=== PATIENT | male | born 2000 | race Hispanic/Latino ===

== ENCOUNTER 2025-06-28 15:52 | Emergency (ER) | payer SELFPAY ==
[~2025-06-28] VITALS: Ht 172.7 cm; Wt 74.8 kg
--- NOTE | 2025-06-28 16:09 | ERN ---
ED Note History of Present Illness Stated Complaint: CHEST PAIN Chief Complaint: Chest Pain Time Seen by MD: 15:56 Dictation: PATIENT IS A 25-YEAR-OLD MALE COMING IN TODAY WITH COMPLAINTS OF SUBSTERNAL CHEST PAIN THAT IS WORSE WITH COUGH OR INSPIRATION THAT RADIATES TO HIS UPPER BACK. HE STATES THE ONSET WAS THIS MORNING WHILE HE WAS COUGHING. HE DENIES ANY HISTORY OF CAD HYPERTENSION DIABETES. HE STATES HE HAS USED DRUGS INCLUDING COCAINE IN THE PAST, STATES HE LAST USED COCAINE ONE MONTH AGO ON-CALL. FOR PRIMARY CARE DOCTOR Allergies: Coded Allergies: No Known Allergies (Unverified Allergy, Unknown, 06/28/25) Home Meds Active Scripts Prednisone (Prednisone) 20 Mg Tablet, 1 TAB PO AD for 6 Days, #14 TAB 0 Refills TAKE 1 TAB BY MOUTH THREE TIMES PER DAY X3 DAYS, THEN TAKE 1 TAB BY MOUTH TWICE A DAY X2 DAYS, THEN TAKE 1 TAB BY MOUTH ONCE A DAY X1 DAY. TAKE WITH FOOD Prov:DILEEP MOREJON CONTENT CREATION MANAGER 06/28/25 Ibuprofen (Ibuprofen 800 mg Tab) 800 Mg Tab, 800 MG PO Q8H PRN for fever or pain, #30 TAB 0 Refills Prov:DILEEP MOREJON CONTENT CREATION MANAGER 06/28/25 Past Medical History Past Medical History: No Pertinent History Surgical History: None Social History: Drugs, ETOH RN Note Reviewed/Agreed w/PFSH: Yes Review of System Dictation CONSTITUTIONAL: NEGATIVE EXCEPT FOR HPI HEAD/FACE: NEGATIVE EXCEPT FOR HPI EENT: NEGATIVE EXCEPT FOR HPI RESPIRATORY: NEGATIVE EXCEPT FOR HPI CHEST PAIN RADIATES TO UPPER BACK GASTROINTESTINAL/ABDOMINAL: NEGATIVE EXCEPT FOR HPI GENITOURINARY: NEGATIVE EXCEPT FOR HPI MUSCULOSKELETAL: NEGATIVE EXCEPT FOR HPI INTEGUMENTARY: NEGATIVE EXCEPT FOR HPI NEUROLOGICAL/PSYCH: NEGATIVE EXCEPT FOR HPI HEMATOLOGIC/LYMPHATIC: NEGATIVE EXCEPT FOR HPI ALL SYSTEMS NEGATIVE, EXCEPT NOTED ABOVE. 13 POINT REVIEW OF SYSTEMS ASSESSED AND ALL NEGATIVE EXCEPT FOR ABOVE. Initial Vital Sign VS Vital Signs Date Time Temp Pulse Resp B/P (MAP) Pulse Ox O2 Delivery O2 Flow Rate FiO2 06/28/25 15:54 98.2 107 20 147/61 99 Room Air 0 06/28/25 16:50 21 Physical Exam Dictation VITAL SIGNS REVIEWED GENERAL APPEARANCE: ALERT, ORIENTED X 3, MODERATE ACUTE DISTRESS, WELL DEVELOPED, NOURISHED. HEAD AND FACE: NON-TRAUMATIC. EYES: PERRL, PINK CONJUNCTIVAS, EYELID NO TRAUMA, ANTERIOR CHAMBER WITH ARCUS SENILIS. EARS: PINNAS INTACT AND NO SIGNS OF TRAUMA OR ERYTHEMA EAR CANALS CLEAR AND NO DISCHARGE TM NO ERYTHEMA NOSE: NO DISCHARGE, NO BLEEDING. OROPHARYNX: MOUTH NORMAL, TONGUE PINK, PHARYNX CLEAR,NO ERYTHEMA, TONSILS NO EXUDATES, NO ABSCESSES NOTED, MUCOUS MEMBRANE MOIST NECK: SUPPLE, NON-TENDER, NO THYROMEGALY, NO MASSES, NO JVD, NO BRUITS BREAST:DEFERRED CHEST: DIFFUSE ANTERIOR UPPER CHEST PAIN TENDERNESS, NO CREPITUS, NO PARA DOXICAL MOVEMENT, NO RETRACTIONS LUNGS:CLEAR, WELL-VENTILATED, SYMMETRIC, NO RALES, NO WHEEZING, NO RHONCHI, NO STRIDOR, GOOD BREATH SOUNDS BILATERALLY HEART: REGULAR RATE, REGULAR RHYTHM, NO MURMUR, NO GALLOPS VASCULAR: NO PERIPHERAL EDEMA, ABDOMEN: SOFT, POSITIVE BOWEL SOUNDS, NONDISTENDED, NO GUARDING, NONTENDER, NO REBOUND, NO MASSES NO HEPATOMEGALY, NO SPLENOMEGALY, NO MALAVE'S SIGN, NO HERNIAS. RECTAL: DEFERRED GENITAL: DEFERRED NEUROLOGICAL: NORMAL SPEECH, MOTOR FUNCTION INTACT, SENSORY FUNCTION INTACT MUSCULOSKELETAL: NECK NONTENDER, FULL RANGE OF MOTION, BACK NONTENDER, FULL RANGE OF MOTION, EXTREMITIES: NONTENDER, FULL RANGE OF MOTION SKIN: COLOR PINK, DRY, NO TURGOR, NO RASH, NO LACERATIONS, NO ABRASIONS, NO CONTUSIONS. LYMPHATIC: DEFERRED Results (Laboratory/Radiology) Laboratory/Radiology Laboratory Tests Test 06/28/25 16:07 06/28/25 17:13 White Blood Count 17.7 K/uL (4.8-10.8) H Red Blood Count 4.69 MIL/uL (4.50-6.20) Hemoglobin 14.4 g/dL (14.0-18.0) Hematocrit 41.4 % (42-54) L Mean Corpuscular Volume 88.3 fL (79-99) Mean Corpuscular Hemoglobin 30.7 pg (27.0-33.0) Mean Corpuscular Hemoglobin Concent 34.8 g/dL (32.0-36.0) Red Cell Distribution Width 12.6 % (11.0-15.5) Platelet Count 338 K/uL (130-400) Mean Platelet Volume 8.8 fL (7.5-10.5) Immature Granulocyte % (Auto) 0.5 % (0-1) Neutrophils (%) (Auto) 74.9 % (40.0-77.0) Lymphocytes (%) (Auto) 15.8 % (21.0-51.0) L Monocytes (%) (Auto) 7.3 % (3.0-13.0) Eosinophils (%) (Auto) 1.1 % (0.0-8.0) Basophils (%) (Auto) 0.4 % (0.0-5.0) Neutrophils # (Auto) 13.3 K/uL (1.8-7.7) H Lymphocytes # (Auto) 2.8 K/uL (1.0-4.8) Monocytes # (Auto) 1.3 K/uL (0.1-1.0) H Eosinophils # (Auto) 0.20 K/uL (0.00-0.70) Basophils # (Auto) 0.07 K/uL (0.00-0.20) Absolute Immature Granulocyte (auto 0.08 K/uL (0-1) Nucleated Red Blood Cells 0.0 % (0.0-0.19) Sodium Level 138 mmol/L (136-145) Potassium Level 3.8 mmol/L (3.5-5.1) Chloride Level 101 mmol/L (101-111) Carbon Dioxide Level 28 mmol/L (21-32) Blood Urea Nitrogen 11 mg/dL (7-18) Creatinine 1.0 mg/dL (0.5-1.3) Glomerular Filtration Rate Calc 106 mL/min (>90) Random Glucose 96 mg/dL (70-105) Total Calcium 8.4 mg/dL (8.5-10.1) L Troponin I High Sensitivity 5 ng/L (4-75) 4 ng/L (4-75) AM: CR Chest, 1 View. CLINICAL HISTORY: CHEST PAIN COMPARISON: None provided. FINDINGS: LUNGS: There is no mass, infiltrate, or acute pulmonary abnormality. PLEURAL SPACES: No pleural effusion or pneumothorax. MEDIASTINUM: The cardiomediastinal silhouette is within normal limits. BONES: No acute osseous abnormality. IMPRESSION: No acute cardiopulmonary pathology is evident. /[facility] Reviewed?: Yes EKG Comment: 1608/EKG SINUS TACHYCARDIA/HEART RATE 102/AXIS NORMAL/EARLY REPOLARIZATION SEEN IN ANTEROLATERAL LEADS 1707/2ND EKG SINUS RHYTHM/HEART RATE 85/AXIS NORMAL/EARLY REPOLARIZATION SEEN IN V2 V3 V4 V5 1750/HIGH SENSITIVITY TROPONIN FOUR HEART SCORE IS ONE ED Course ED Course Orders Procedure Category Date Status Time Cbc With Differential LAB 06/28/25 Complete 15:59 Troponin I High LAB 06/28/25 Complete Sensitivity 15:59 Basic Metabolic Panel LAB 06/28/25 Complete 15:59 12 Lead Ekg Tracing- EKG 06/28/25 Logged Technical 16:00 Ketorolac 60mg/2ml PHA 06/28/25 Complete (Toradol 60mg/2ml) 16:30 Chest 1vw RAD 06/28/25 Resulted 16:07 12 Lead Ekg Tracing- EKG 06/28/25 Logged Technical 17:05 Troponin I High LAB 06/28/25 Complete Sensitivity 17:05 Current Medications Medications (Trade) Dose Ordered Sig/Christine Route PRN Reason Start Time Stop Time Status Last Admin Dose Admin Ketorolac Tromethamine (toRADol 60MG/ 2ML) 60 mg ONCE ONCE IM 06/28/25 16:30 06/28/25 16:31 DC 06/28/25 16:41 Vital Signs Date Time Temp Pulse Resp B/P (MAP) Pulse Ox O2 Delivery O2 Flow Rate FiO2 06/28/25 18:00 98.6 92 17 105/68 98 Room Air* 0 06/28/25 16:50 98.6 91 24 117/66 99 Room Air* 0 06/28/25 15:54 98.2 107 20 147/61 99 Room Air 0 1755/PATIENT STATES PAIN MARKEDLY IMPROVED WITH TORADOL. DISCUSSED FINDINGS WITH PATIENT IN HIS ALL QUESTIONS AND HEART Score Response (Comments) Value History: Moderate suspicion (+1) 1 EKG: Normal 0 Age: < 45yrs (0) 0 Risk Factors: No known risk factors (0) 0 Initial Troponin: Normal limit (0) 0 Total 1 Medical Decision Making MDM MDM: DIFFERENTIAL DIAGNOSIS: ACS/AMI/COSTOCHONDRITIS/PNEUMONIA/BRONCHITIS/ELECTROLYTE IMBALANCE/DEHYDRATION RATIONALE: TESTS CONSIDERED AND ORDERED SECONDARY TO SHARED DECISION MAKING INCLUDE: EKG/LABS/RADIOLOGY PREVIOUS OUTSIDE RECORDS REVIEWED: OLD ER VISITS. RISK OF COMPLICATION AND/OR MORBIDITY OR MORTALITY OF PATIENT MANAGEMENT: NONE MEDICATIONS-PER MEDICATION RECONCILIATION NEED FOR HOSPITALIZATION: PATIENT DOES NOT MEET CRITERIA FOR HOSPITALIZATION. NONE NEED FOR EMERGENCY MAJOR/MINOR SURGERY: NO THERE ARE NO SOCIAL CONCERNS WITH THIS PATIENT. PRESCRIPTION DRUG MANAGEMENT IBUPROFEN/PREDNISONE PRESCRIPTIONS WILL INCLUDE SYMPTOMATIC CARE PATIENT'S PRIOR EXTERNAL MEDICAL RECORDS FROM OTHER ER VISITS WERE REVIEWED BY ME INDICATED. PRIOR TESTING AND RESULTS FROM PREVIOUS VISITS WERE REVIEWED. PRIOR TESTS WERE TAKEN INTO ACCOUNT WITH MEDICAL DECISION MAKING AND RESOURCE UTILIZATION, INDEPENDENT HISTORIAN/HISTORIANS WERE USED TO OBTAIN COMPLETE MEDICAL HISTORY. I INDEPENDENTLY INTERPRETED THE TEST THAT WERE PERFORMED, RESULTS WERE REVIEWED BY ME AND CONSIDERED FINDINGS ON RADIOLOGY IF ORDERED. MEDICAL MANAGEMENT AND EXAMINATION INTERPRETATION DISCUSSIONS WERE HAD BY ME WITH OTHER QUALIFIED HEALTHCARE PROFESSIONALS INDICATED FOR THE PATIENT'S CARE. DX & DISP Disposition: Discharge Departure Impression: Primary Impression: Costochondritis, acute Additional Impression: Hypocalcemia Condition: Stable Scripts Prednisone (Prednisone) 20 Mg Tablet 1 TAB PO AD for 6 Days, #14 TAB 0 Refills TAKE 1 TAB BY MOUTH THREE TIMES PER DAY X3 DAYS, THEN TAKE 1 TAB BY MOUTH TWICE A DAY X2 DAYS, THEN TAKE 1 TAB BY MOUTH ONCE A DAY X1 DAY. TAKE WITH FOOD Prov: DILEEP MOREJON 06/28/25 Ibuprofen (Ibuprofen 800 mg Tab) 800 Mg Tab 800 MG PO Q8H PRN for fever or pain, #30 TAB 0 Refills Prov: DILEEP MOREJON 06/28/25 Additional Instructions: FOLLOW-UP WITH PRIMARY CARE PROVIDER IN 1 TO 2 DAYS. TAKE MEDICATIONS DIRECTED HERE IN THE EMERGENCY ROOM. OKAY TO CONTINUE HOME MEDICATIONS UNLESS OTHERWISE DISCUSSED DURING YOUR VISIT IN THE EMERGENCY ROOM TODAY. RETURN TO YOUR NEAREST EMERGENCY ROOM IF SYMPTOMS WORSEN OR IF THERE IS NO IMPROVEMENT. CALL 911 IF YOU NEED IMMEDIATE ASSISTANCE. TAKE TYLENOL OR MOTRIN [id number] NEEDED AND IF NO CONTRAINDICATIONS ARE PRESENT. INCREASE OR AL HYDRATION. A WOUND CULTURE OR URINE CULTURE WAS ORDERED HERE IN THE EMERGENCY ROOM DEPARTMENT PLEASE FOLLOW-UP WITH PRIMARY CARE PROVIDER AND ADVISE THEM TO GET REPEAT PORTS FROM OUR FACILITY. IF YOU HAD ANY FRANCOIS WRAP/SPLINTS THAT WERE APPLIED HERE, PLEASE DO NOT REMOVE THEM UNTIL YOU SEE YOUR PRIMARY CARE OR SPECIALTY. TAKE PREDNISONE DIRECTED UNTIL GONE WITH FOOD. TAKE IBUPROFEN EVERY 8 HOURS FOR THE NEXT TWO DAYS WITH FOOD. SEE YOUR PRIMARY CARE DOCTOR FOR FOLLOW UP IN 1-2 DAYS. Referrals: SELF,REFERRAL (PCP) Time of Disposition: 17:55 I have reviewed the case, and I agree with, Diagnosis and Plan DILEEP MOREJON Jun 28, 2025 16:09 TK GARCIA DO Jun 28, 2025 18:03
[2025-06-28 16:14] LABS: IMMATURE GRANULOCYTE ABSOLUTE 0.08 K/uL (0-1); NUCLEATED RED BLOOD CELLS 0.0 % (0.0-0.19); PLATELET COUNT (AUTO) 338 K/uL (130-400); RED BLOOD CELL COUNT(AUTO) 4.69 MIL/uL (4.50-6.20); RED CELL DISTRIBUTION WIDTH 12.6 % (11.0-15.5); WHITE BLOOD COUNT (AUTO) 17.7 K/uL (4.8-10.8)
[2025-06-28 16:26] LABS: CREATININE 1.0 mg/dL (0.5-1.3); GLOMERULAR FILTR. RATE CALC 106.0 mL/min (>90); GLUCOSE,RANDOM 96.0 mg/dL (70-105); SODIUM SERUM 138.0 mmol/L (136-145); UREA NITROGEN, BLOOD 11.0 mg/dL (7-18)
--- NOTE | 2025-06-28 16:31 | HMCIMG ---
EXAM: CR Chest, 1 View. CLINICAL HISTORY: CHEST PAIN COMPARISON: None provided. FINDINGS: LUNGS: There is no mass, infiltrate, or acute pulmonary abnormality. PLEURAL SPACES: No pleural effusion or pneumothorax. MEDIASTINUM: The cardiomediastinal silhouette is within normal limits. BONES: No acute osseous abnormality. IMPRESSION: No acute cardiopulmonary pathology is evident. /[place]
[2025-06-28] MEDS ORDERED: PRED20TA3 PO (17:56)
[2025-06-28] MEDS ORDERED: IBUP-2077 PO (17:56)
[2025-06-28 18:00] VITALS: BP 105/68; PULSE 92; RESP 17; TEMP 98.6; O2SAT 98
--- NOTE | 2025-06-29 07:10 | EKG ---
[facility] Test Date: 2025-06-28 Test Time: 17:07:48 Pat Name: MARTIR SUMMERS Department: [facility] Room: Gender: M Proposal Review Analyst: [id number] : 2000 Requested By: DILEEP MOREJON Order Number: [id number] Reading MD: Damon Medrano Measurements Intervals [place] Rate: 85 P: 52 IA: 168 QRS: 68 QRSD: 84 T: 50 QT: 322 QTc: 384 Interpretive Statements Sinus rhythm ST elev, probable normal early repol pattern Compared to ECG 06/28/2025 15:58:47 Sinus tachycardia no longer present ST (T wave) deviation still present Electronically Signed On 06-29-2025 16:15:41 CAT WAGON OPERATOR by Damon Medrano Please click the below link to view image of tracing.
--- NOTE | 2025-06-29 07:10 | EKG ---
[facility] Test Date: 2025-06-28 Test Time: 15:58:47 Pat Name: MARTIR SUMMERS Department: [facility] Room: Gender: M Cartridge Assembler: [facility] : 2000 Requested By: DILEEP MOREJON Order Number: [id number] Reading MD: Damon Medrano Measurements Intervals [place] Rate: 102 P: 74 [place]: 142 QRS: 76 QRSD: 88 T: 56 QT: 308 QTc: 402 Interpretive Statements Sinus tachycardia ST elev, probable normal early repol pattern No previous ECG available for comparison Electronically Signed On 06-29-2025 16:15:30 CHAINSTITCH SEWING MACHINE OPERATOR by Damon Medrano Please click the below link to view image of tracing.
== END 2025-06-28 18:05 | disposition home or self-care (01) ==
LOC: EDH 15:52
DX: M94.0 Chondrocostal junction syndrome [Tietze] (principal); E83.51 Hypocalcemia
CPT/HCPCS: 99285; 71045; 84484 ×2; 80048; 85025; 36415; 96372; 93005 ×2; J1885